=== PATIENT | male | born 1940 | race African-American/Black ===

== ENCOUNTER → 2016-07-15 | Day surgery (SDC) | payer MEDICARE, MEDICAID ==
[~2016-07-15] MED LIST: ACCUTES19 XX; ACETAMINOPHEN 1000 MG/100 ML VIAL IV ONE; BUPIVACAINE/EPINEPHRINE 0.25% PF 30 ML VIAL ONE; CALC667T PO; ERGO50000 PO; GLIM4 PO; GLUCOMETER XX; GLUCOMTESTSTRIPS XX; HYDR-3133 PO; INSU-174; LABE200T2 PO; LACTATED RINGER'S 1000 ML INJ 1,000 ML ONE; LEVEMIR SQ; LIDOCAINE 1%/EPINEPHrine 1:100,000 SOLN 20 ML VIAL ONE; MIDAZOLAM HCL 2 MG/2 ML VIAL ONE; NOVOLOGSS SQ; ONDANSETRON HCL 4 MG/2 ML VIAL IV PUSH ONE; PROPOFOL 100 MG/10 ML INJ IV ONE; VANCOMYCIN HCL 1000 MG VIAL ONE; ZOFR4TAB3 SL; [UNRECOGNIZED DRUG - CODE]; ceFAZolin INJ 1,000 MG VIAL ONE
--- NOTE | 2016-07-18 08:43 | MP ---
cc: SHRIA MCKEE M.D. DATE OF SURGERY 07/15/2016 PROCEDURE 1. Left inguinal hernia repair with mesh. 2. Aspiration of right triceps postoperative seroma. ANESTHESIA LMA. SURGEON MD David ESTIMATED BLOOD LOSS Less than 10 mL. FLUIDS 400 mL crystalloid. COMPLICATIONS None. DRAINS None. SPECIMEN None. PROCEDURE IN DETAIL The patient was taken to the operating room after marking the left groin and having this confirmed by the patient. He was placed on the operating table in the supine position at which point the left groin was shaved, prepped and draped. Time-out was taken confirming the correct patient site and procedure to be performed. The skin and subcutaneous tissue was infiltrated with local anesthetic and an oblique incision made in the left groin. Dissection was carried down through the subcutaneous tissues to the external oblique fascia where further subfascial injections were made with local anesthetic. The external oblique fibers were opened in the direction of the fibers and the underlying tissues swept free from the external oblique fascia. The spermatic cord structures were brought up on a [place] drain. The iliohypogastric nerve and the ilioinguinal nerve were both preserved and left in [place] cover[place]. Dissection was carried back to the internal ring. A large lipoma of the cord was dissected off of the cord and inverted into the abdominal cavity. No direct defect was noted. At this point a 3 x 6 inch piece of Atrium mesh was brought up and secured to the pubic tubercle with 2-0 Prolene suture. This was then run along the shelving edge of the inguinal ligament to complete the lateral edge of the repair. The mesh was then slit longitudinally and trimmed to size to fit the defect. The mesh was fixed at multiple points with interrupted 2-0 Prolene suture with care taken to avoid any sutures around the iliohypogastric nerve. The medial leaf of mesh was then brought over the lateral leaf of mesh and secured down to the inguinal ligament with three 2-0 Prolene sutures. A new internal ring was sufficiently snug to minimize the risk of recurrence but allow egress of the cord structures. When this was completed and with hemostasis assured, 30 mL of 0.25% Marcaine with epinephrine was injected into the transversalis fascia and subcutaneous tissues. The external oblique fascia was then closed with a running 3-0 Vicryl suture with care taken to avoid capturing the underlying structures with the closure. The iliohypogastric nerve was far from the edge of the closure. The subcutaneous tissue with was reapproximated with interrupted 3-0 Vicryl suture and the skin closed with 5-0 PDS in a running subcuticular fashion. The wound was covered with Telfa and Tegaderm. At this point attention was turned to the right triceps region. The skin was prepped and 40 mL of serosanguineous fluid was easily aspirated from the seroma. The wound was dressed with 4x4s and an Adal wrap to minimize the risk of recurrence. The patient was extubated and taken back to the recovery room in stable condition. Sponge, needle and instrument counts were reported be correct. He tolerated the procedure well. MD ALVA Juan/LEAH /11:22 PM /8:35 AM
== END | disposition home or self-care (01) ==
LOC: ESDC 06:24
PROVIDERS: ATTEND Surgery Trauma Surgery
DX: K40.90 Unilateral inguinal hernia, without obstruction or gangrene, not specified as recurrent (principal); E11.9 Type 2 diabetes mellitus without complications; Z79.4 Long term (current) use of insulin; L76.34 Postprocedural seroma of skin and subcutaneous tissue following other procedure
CPT/HCPCS: 00400; 00830; 10160; 49505; 82948; C1781; J0131; J0690; J2250; J2405; J3010; J3370; J7120

== ENCOUNTER 2016-09-05 12:24 | Emergency (ER) | payer MEDICARE, MEDICAID ==
[~2016-09-05] VITALS: Ht 167.6 cm; Wt 71.5 kg
[~2016-09-05 12:24] MED LIST changes: -ACETAMINOPHEN 1000 MG/100 ML VIAL IV ONE; -BUPIVACAINE/EPINEPHRINE 0.25% PF 30 ML VIAL ONE; -LACTATED RINGER'S 1000 ML INJ 1,000 ML ONE; -LIDOCAINE 1%/EPINEPHrine 1:100,000 SOLN 20 ML VIAL ONE; -MIDAZOLAM HCL 2 MG/2 ML VIAL ONE; -ONDANSETRON HCL 4 MG/2 ML VIAL IV PUSH ONE; -PROPOFOL 100 MG/10 ML INJ IV ONE; -VANCOMYCIN HCL 1000 MG VIAL ONE; -ceFAZolin INJ 1,000 MG VIAL ONE
[2016-09-05 12:30] VITALS: BP 128/81; PULSE 80; RESP 16; TEMP 99.4; O2SAT 96
--- NOTE | 2016-09-05 12:46 | PD ---
HPI . Coughing and fever Chief Complaint: Cold / Flu Symptoms Time Seen by Provider: 12:46 Travel History International Travel<30 days: No Contact w/Intl Traveler<30days: No Traveled to known affect area: No History of Present Illness HPI 76-year-old male with ESRD, hypertension and diabetes here with complaints of cough and flulike symptoms that he had one week ago. Patient went to see his primary care provider and he recommended chest x-ray and sent him to the emergency department. At time of examination patient states he is really not having any symptoms. He tells me that he has a slight fever. Temperature is 99.4. He has no other complaints. He tells me he is here for chest x-ray only. PFSH Past Medical History Hx Anticoagulant Therapy: No Cancer: No Cardiovascular Problems: Yes (HTN) Diabetes: Yes Patient Takes Glucophage: Yes Diminished Hearing: No Endocrine: No Genitourinary: No Hepatitis: No Hiatal Hernia: No Hypertension: Yes Immune Disorder: Yes (HIV) Musculoskeletal: Yes Neurologic: No Psychiatric: No Reproductive: No Respiratory: No Immunizations Current: Yes Renal Failure: Yes (STAGE 4 ) Shingles: Yes Thyroid Disease: No Tetanus Vaccination: > 5 Years Influenza Vaccination: Yes Past Surgical History Abdominal Surgery: No AICD: No Cardiac Surgery: No Endocrine Surgery: No Eye Surgery: No Genitourinary Surgery: No Gynecologic Surgery: No Joint Replacement: No Oral Surgery: Yes (TEETH EXTRACTION) Pacemaker: No Thoracic Surgery: No Social History Alcohol Use: No Tobacco Use: No (QUIT AGE 26) Substance Use: No Allergies-Medications (Allergen,Severity, Reaction): Coded Allergies: No Known Allergies (Unverified , 09/05/16) Reported Meds & Prescriptions Reported Meds & Active Scripts Active Active Prescriptions or Reported Medications Unobtainable Review of Systems General / Constitutional: Positive: Fever Eyes: No: Visual changes HENT: No: Headaches Cardiovascular: No: Chest Pain or Discomfort Respiratory: No: Shortness of Breath Gastrointestinal: No: Abdominal Pain Genitourinary: No: Dysuria Musculoskeletal: No: Pain Skin: No Rash Neurologic: No: Weakness Psychiatric: No: Depression Endocrine: No: Polydipsia Hematologic/Lymphatic: No: Easy Bruising Physical Exam Narrative GENERAL: AAO x 3, no acute distress, Well-nourished, well-developed patient. SKIN: Warm and dry. No visible rashes or bruising. HEAD: Normocephalic and atraumatic. EYES: No scleral icterus. No injection or drainage. ENT: No nasal drainage noted. Mucous membranes pink. Airway patent. NECK: Supple, trachea midline. No JVD. CARDIOVASCULAR: Regular rate and rhythm without murmurs, gallops, or rubs. RESPIRATORY: Breath sounds equal bilaterally. No accessory muscle use. No rhonchi or rales. GASTROINTESTINAL: Abdomen soft, non-tender, nondistended. EXTREMITIES: No cyanosis or edema. BACK: Nontender without obvious deformity. No CVA tenderness. PSYCH: AAO x 3, normal affect. Data Data Last Documented VS Vital Signs Date Time Temp Pulse Resp B/P Pulse Ox O2 Delivery O2 Flow Rate FiO2 09/05/16 12:41 96 Room Air 09/05/16 12:30 99.4 80 16 128/81 Orders Chest, Single Ap (09/05/16 12:49) MDM Medical Decision Making Medical Screen Exam Complete: Yes Emergency Medical Condition: Yes Differential Diagnosis viral syndrome, bronchitis, less likely PNA Narrative Course 76-year-old male with hypertension and diabetes here with complaints of cough and flulike symptoms that he had one week ago. Patient went to see his primary care provider and he recommended chest x-ray and sent him to the emergency department. At time of examination patient states he is really not having any symptoms. He tells me that he has a slight fever. Temperature is 99.4. He has no other complaints. He tells me he is here for chest x-ray. Patient seen and examined. Lungs are clear. I doubt there will be any findings on cxr. Negative CXR Discussed with patient. Patient verbalized understanding of instructions, questions were answered, and thanked me for their care. I advised them if their condition worsens, please return to the nearest emergency room for further care. Diagnosis Primary Impression: Fever Qualified Code: R50.9 - Fever, unspecified fever cause Patient Instructions: Fever in Adults (ED), General Instructions Additional Instructions: Please return to emergency department if your symptoms return or worsen. Follow up with your primary care provider. Your chest x-ray was negative. Med/Other Pt SpecificInfo: No Change to Meds Scripts Unable to Obtain Active Prescriptions or Reported Meds Disposition: 01 DISCHARGE HOME Condition: Stable Amber Zayas Sep 05, 2016 12:46
--- NOTE | 2016-09-05 13:49 | RADHPO ---
EXAM DATE/TIME: 09/05/2016 12:57 [facility] COMPARISON: No previous studies available for comparison. INDICATIONS : Cough and shortness of breath. MEDICAL HISTORY : Diabetes mellitus type II. SURGICAL HISTORY : None. ENCOUNTER: Initial ACUITY: 4 - 6 days PAIN SCORE: 0/10 LOCATION: Bilateral chest FINDINGS: A single view of the chest demonstrates the lungs to be symmetrically aerated without evidence of mas s, infiltrate or effusion. The cardiomediastinal contours are unremarkable. Osseous structures are intact. CONCLUSION: No acute disease. Bandar George MD on September 05, 2016 at 13:47 Board Certified Radiologist. This report was verified electronically.
== END 2016-09-05 14:02 | disposition home or self-care (01) ==
LOC: PHEFT 12:24
DX: R50.9 Fever, unspecified (principal); E11.9 Type 2 diabetes mellitus without complications; I12.0 Hypertensive chronic kidney disease with stage 5 chronic kidney disease or end stage renal disease; N18.6 End stage renal disease; Z79.84 Long term (current) use of oral hypoglycemic drugs; Z21 Asymptomatic human immunodeficiency virus [HIV] infection status; Z86.79 Personal history of other diseases of the circulatory system; Z87.39 Personal history of other diseases of the musculoskeletal system and connective tissue; Z86.69 Personal history of other diseases of the nervous system and sense organs; Z87.891 Personal history of nicotine dependence
CPT/HCPCS: 71010; 99284